=== PATIENT | male | born 1955 | race African-American/Black ===

== ENCOUNTER 2018-12-31 04:38 | Inpatient (IN) | payer MEDICARE, MEDICAID ==
[~2018-12-31] VITALS: Ht 180.3 cm; Wt 91.6 kg
[2018-12-31] MEDS ORDERED: ONDANSETRON HCL 4MG/2ML INJ IV ONE (05:00)
[2018-12-31] MEDS ORDERED: MORPHINE SULFATE 4 MG/ML CPJ (NOT FOR IM USE) IV ONE (05:00)
[2018-12-31] MEDS ORDERED: SODIUM CHLORIDE 0.9% 1,000 ML IV ONE (05:00)
[2018-12-31 05:16] LABS: BASOPHILS % 0.7 % (0.0-2.0); EOSINOPHILS % 1.7 % (0.0-5.0); HEMATOCRIT. 42.6 % (42.0-52.0); HEMOGLOBIN. 14.6 g/dL (14.0-18.0); LYMPHOCYTES % 13.4 % (20.0-50.0); MEAN CORPUSCULAR HEMOGLOBIN 30.8 pg (28.0-32.0); MONOCYTES % 6.1 % (2.0-8.0); NEUTROPHILS % 78.1 % (40.0-76.0); PLATELET 235 x1000/uL (130-400); RED BLOOD CELL COUNT 4.74 mill/uL (4.7-6.1); RED CELL DISTRIBUTION WIDTH 13.6 % (11.6-14.6)
[2018-12-31 05:20] LABS: CHLORIDE 103 mEq/L (98-107)
[2018-12-31 05:27] LABS: PROTHROMBIN TIME 10.3 sec (9.6-11.0)
[2018-12-31] MEDS ORDERED: IPRATROPIUM BROMIDE (0.02%) 0.5MG/2.5ML NEB HHN STA (06:24)
[2018-12-31] MEDS ORDERED: METHYLPREDNISOLONE SOD SUCC 125 MG/2 ML VIAL IV STA (06:24)
[2018-12-31] MEDS ORDERED: ALBUTEROL (0.083%) 2.5MG/3ML NEB HHN STA (06:24)
[2018-12-31] MEDS ORDERED: MAGNESIUM 2 G PREMIX 50 ML IV ONE (06:30)
[2018-12-31 06:39] LABS: CLARITY URINE CLOUDY (CLEAR); COLOR URINE YELLOW (YELLOW); KETONES URINE TRACE (NEGATIVE); LEUKOCYTE ESTERASE URINE NEGATIVE (NEGATIVE); NITRITE URINE NEGATIVE (NEGATIVE); OCCULT BLOOD URINE NEGATIVE (NEGATIVE); PROTEIN URINE NEGATIVE (NEGATIVE); UROBILINOGEN URINE 0.2 E.U./dL (0.2-1.0)
[2018-12-31] MEDS ORDERED: PIPERACILLIN/TAZ 3.375G PREMIX 50 ML IV ONE (06:45)
[2018-12-31] MEDS ORDERED: ACETAMINOPHEN 325MG TABLET PO PRN (10:15)
[2018-12-31] MEDS ORDERED: CLONIDINE 0.1MG TABLET PO PRN (10:15)
[2018-12-31] MEDS ORDERED: MORPHINE SULFATE 2 MG/ML CPJ (NOT FOR IM USE) IV PRN (10:15)
[2018-12-31] MEDS ORDERED: MAGNESIUM/ALUMINUM HYDROXIDE/SIMETHICONE 30ML UDC PO PRN ×2 (10:15→13:45)
[2018-12-31] MEDS ORDERED: IPRATROPIUM/ALBUTEROL 0.5-3(2.5)MG/3ML NEB HHN PRN (10:15)
[2018-12-31] MEDS ORDERED: DIPHENHYDRAMINE 50MG/ML VIAL IV PRN (10:15)
[2018-12-31] MEDS ORDERED: ONDANSETRON HCL 4MG/2ML INJ IV PRN (10:15)
[2018-12-31] MEDS ORDERED: SIMETHICONE 80MG TABLET CHEW PO PRN (13:45)
[2018-12-31 14:32] VITALS: BP 137/76
[2018-12-31 14:41] LABS: *AMPHETAMINES SCREEN URINE NEGATIVE (NEGATIVE); *BARBITURATES SCREEN URINE NEGATIVE (NEGATIVE)
[2018-12-31 14:42] LABS: *BENZODIAZEPINES SCREEN URINE NEGATIVE (NEGATIVE); *COCAINE SCREEN URINE NEGATIVE (NEGATIVE); CANNABINOID URINE SCREEN PRESUMTIVE POSITIVE (NEGATIVE); METHADONE URINE SCREEN NEGATIVE (NEGATIVE); OPIATES URINE SCREEN PRESUMTIVE POSITIVE (NEGATIVE); PHENCYCLIDINE URINE SCREEN NEGATIVE (NEGATIVE)
[2018-12-31] MEDS ORDERED: BUDE6HFA INH (15:03)
[2018-12-31] MEDS ORDERED: TIOT18CA3 IH (15:04)
[2018-12-31] MEDS ORDERED: ASPI-1393 PO (15:05)
[2018-12-31] MEDS ORDERED: LOSA50TA41 MT (15:05)
[2018-12-31] MEDS ORDERED: HYDR25TA PO (15:07)
[2018-12-31] MEDS ORDERED: FLUO60SO TP (15:09)
[2018-12-31] MEDS ORDERED: INFLUENZA VIRUS VACCINE(AFLURIA) 0.5ML SYR IM ONE (15:15)
[2018-12-31] MEDS ORDERED: PNEUMOCOCCAL 23-VAL P-SAC VAC 0.5 ML IM ONE (15:15)
[2018-12-31 15:20] VITALS: BP 137/85
[2018-12-31] MEDS: OMEPRAZOLE 20MG CAPSULE EXTENDED RELEASE PO SCH (15:27)
[2018-12-31] MEDS: SODIUM CHLORIDE 0.9% 1,000 ML IV SCH (16:53)
[2018-12-31] MEDS ORDERED: ALBU6.7H INH (19:47)
[2018-12-31 20:00] VITALS: BP 127/71
[2018-12-31] MEDS ORDERED: ALBUTEROL (0.083%) 2.5MG/3ML NEB HHN PRN (21:30)
[2019-01-01] VITALS: BP 129/80
[2019-01-01] MEDS ORDERED: DEXTROSE 50% WATER 50ML SYRINGE IV PRN (00:15)
[2019-01-01] MEDS: BUDESONIDE 0.5MG/2ML NEB HHN SCH ×3 (00:40→21:19)
[2019-01-01 04:00] VITALS: BP 134/77
[2019-01-01] MEDS: SODIUM CHLORIDE 0.9% 1,000 ML IV SCH ×2 (04:30→17:21)
[2019-01-01] MEDS: BLOOD SUGAR DIAGNOSTIC STRIP TEST SCH ×4 (07:04→20:46)
[2019-01-01] MEDS: INSULIN LISPRO 100 UNITS/ML SUBCUT SCH ×4 (07:04→21:00)
[2019-01-01] MEDS: OMEPRAZOLE 20MG CAPSULE EXTENDED RELEASE PO SCH (07:04)
[2019-01-01 07:55] LABS: BASOPHILS % 0.6 % (0.0-2.0); EOSINOPHILS % 0.1 % (0.0-5.0); HEMATOCRIT. 40.5 % (42.0-52.0); HEMOGLOBIN. 13.8 g/dL (14.0-18.0); LYMPHOCYTES % 19.8 % (20.0-50.0); MEAN CORPUSCULAR HEMOGLOBIN 30.6 pg (28.0-32.0); MEAN CORPUSCULAR VOLUME 89.9 fL (80.0-94.0); MEAN PLATELET VOLUME 8.9 fl (7.4-10.4); MONOCYTES % 6.3 % (2.0-8.0); NEUTROPHILS % 73.2 % (40.0-76.0); PLATELET 240 x1000/uL (130-400); RED CELL DISTRIBUTION WIDTH 13.7 % (11.6-14.6)
[2019-01-01 08:00] VITALS: BP 127/73
[2019-01-01 08:02] LABS: CHLORIDE 106 mEq/L (98-107)
[2019-01-01 08:09] LABS: LDL CHOLESTEROL 72 mg/dL (5-100)
[2019-01-01 08:15] LABS: HDL CHOLESTEROL 55 mg/dL (40-59)
[2019-01-01] MEDS: PIPERACILLIN/TAZOBACTAM 3.375 G in DEXT 5% WATER 100 ML IV SCH ×3 (11:49→23:24)
[2019-01-01 12:19] VITALS: BP 147/69
[2019-01-01 16:00] VITALS: BP 108/64
[2019-01-01] MEDS: ALBUTEROL 6.7GM HFA INHALER ORI PRN (18:40)
[2019-01-01 20:00] VITALS: BP 117/60
[2019-01-02] VITALS: BP 134/71
[2019-01-02 04:00] VITALS: BP 132/90
[2019-01-02] MEDS: SODIUM CHLORIDE 0.9% 1,000 ML IV SCH ×2 (04:11→12:11)
[2019-01-02] MEDS: INSULIN LISPRO 100 UNITS/ML SUBCUT SCH ×2 (06:34→11:46)
[2019-01-02] MEDS: BLOOD SUGAR DIAGNOSTIC STRIP TEST SCH ×2 (06:34→11:46)
[2019-01-02] MEDS: OMEPRAZOLE 20MG CAPSULE EXTENDED RELEASE PO SCH (06:38)
[2019-01-02] MEDS: PIPERACILLIN/TAZOBACTAM 3.375 G in DEXT 5% WATER 100 ML IV SCH ×2 (06:39→12:00)
[2019-01-02 06:58] LABS: CHLORIDE 110 mEq/L (98-107)
[2019-01-02 07:03] LABS: BASOPHILS % 1.6 % (0.0-2.0); EOSINOPHILS % 3.3 % (0.0-5.0); HEMATOCRIT. 39.9 % (42.0-52.0); HEMOGLOBIN. 13.6 g/dL (14.0-18.0); LYMPHOCYTES % 44.3 % (20.0-50.0); MEAN CORPUSCULAR HEMOGLOBIN 30.7 pg (28.0-32.0); MEAN CORPUSCULAR VOLUME 90.3 fL (80.0-94.0); MEAN PLATELET VOLUME 8.7 fl (7.4-10.4); MONOCYTES % 8.6 % (2.0-8.0); NEUTROPHILS % 42.2 % (40.0-76.0); PLATELET 217 x1000/uL (130-400); RED BLOOD CELL COUNT 4.42 mill/uL (4.7-6.1); RED CELL DISTRIBUTION WIDTH 13.7 % (11.6-14.6)
[2019-01-02] MEDS: BUDESONIDE 0.5MG/2ML NEB HHN SCH (07:52)
[2019-01-02 08:00] VITALS: BP 130/81
[2019-01-02] MEDS ORDERED: OMEP20CA5 PO (11:02)
[2019-01-02] MEDS ORDERED: CEPH-569 MT (11:05)
[2019-01-02 11:34] VITALS: BP 140/77
[2019-01-02] MEDS: ALBUTEROL 6.7GM HFA INHALER ORI PRN (11:47)
[2019-01-02 12:00] VITALS: BP 149/77
== END 2019-01-02 12:20 | disposition home or self-care (01) | DRG 863 ==
LOC: ER 04:38 → 5WST 06:57 → ENRESERV 12:47
PROVIDERS: ADMIT Internal Medicine; ATTEND Internal Medicine
DX: T81.41XA Infection following a procedure, superficial incisional surgical site, initial encounter (principal); J44.1 Chronic obstructive pulmonary disease with (acute) exacerbation; L03.311 Cellulitis of abdominal wall; E83.39 Other disorders of phosphorus metabolism; I10 Essential (primary) hypertension; K46.9 Unspecified abdominal hernia without obstruction or gangrene; K57.90 Diverticulosis of intestine, part unspecified, without perforation or abscess without bleeding; N40.0 Benign prostatic hyperplasia without lower urinary tract symptoms; R73.9 Hyperglycemia, unspecified; Y83.8 Other surgical procedures as the cause of abnormal reaction of the patient, or of later complication, without mention of misadventure at the time of the procedure; Z79.51 Long term (current) use of inhaled steroids; Z79.899 Other long term (current) drug therapy; Y92.89 Other specified places as the place of occurrence of the external cause
CPT/HCPCS: 36415; 71045; 74176; 76700; 80048; 80061; 80305; 81003; 82962; 83036; 83605; 83735; 83880; 84100; 84443; 84484; 87015; 87045; 87427; 87449; 87493; 90686; 90732; 93005; 93970; 94640; 94644; 96365; 99291; J2270; J2405; J2543; J2930; J3475; J7030; J7060; J7611; J7626

== ENCOUNTER 2019-01-14 12:16 | Emergency (ER) | payer MEDICARE, MEDICAID ==
[~2019-01-14] VITALS: Ht 182.9 cm; Wt 88.0 kg
[~2019-01-14 12:16] MED LIST: ALBU6.7H INH; ASPI-1393 PO; BUDE6HFA INH; CEPH-569 MT; FLUO60SO TP; HYDR25TA PO; LOSA50TA41 MT; OMEP20CA5 PO; TIOT18CA3 IH
[2019-01-14 12:34] VITALS: BP 128/85
== END 2019-01-14 13:20 | disposition home or self-care (01) ==
LOC: ER 12:16
DX: K40.90 Unilateral inguinal hernia, without obstruction or gangrene, not specified as recurrent (principal); J44.9 Chronic obstructive pulmonary disease, unspecified; I10 Essential (primary) hypertension; Z98.890 Other specified postprocedural states; Z79.899 Other long term (current) drug therapy; Z79.82 Long term (current) use of aspirin
CPT/HCPCS: 99281

== ENCOUNTER 2019-02-03 10:38 | Emergency (ER) | payer MEDICARE, MEDICAID ==
[~2019-02-03] VITALS: Ht 182.9 cm; Wt 91.0 kg
[2019-02-03 10:57] VITALS: BP 148/92
[2019-02-03] MEDS ORDERED: OXYCODONE HCL/ACETAMINOPHEN 5/325MG TABLET PO ONE (11:30)
== END 2019-02-03 12:25 | disposition home or self-care (01) ==
LOC: ER 10:38
DX: K40.90 Unilateral inguinal hernia, without obstruction or gangrene, not specified as recurrent (principal); I10 Essential (primary) hypertension; J44.9 Chronic obstructive pulmonary disease, unspecified; Z91.018 Allergy to other foods; Z98.890 Other specified postprocedural states; Z79.82 Long term (current) use of aspirin
CPT/HCPCS: 99283

== ENCOUNTER 2019-04-17 22:13 | Emergency (ER) | payer MEDICARE, MEDICAID ==
[~2019-04-17] VITALS: Ht 182.9 cm; Wt 93.0 kg
[~2019-04-17 22:13] MED LIST changes: -ALBU6.7H INH; +ALBU6.7H11 INH; -ASPI-1393 PO; +ASPI-1497 PO; +OMEP20CA14 PO; -OMEP20CA5 PO
[2019-04-18 01:16] VITALS: BP 134/77
== END 2019-04-18 01:16 | disposition home or self-care (01) ==
LOC: ER 22:13
DX: K40.90 Unilateral inguinal hernia, without obstruction or gangrene, not specified as recurrent (principal); J44.9 Chronic obstructive pulmonary disease, unspecified; Z98.890 Other specified postprocedural states; Z79.82 Long term (current) use of aspirin; Z91.018 Allergy to other foods
CPT/HCPCS: 99283